=== PATIENT | female | born 1950 | race American Indian/Alaskan Native ===

== ENCOUNTER 2017-06-07 17:47 | Emergency (ER) | payer MEDICARE ==
[2017-06-07 18:17] VITALS: BP 176/79
--- NOTE | 2017-06-07 19:31 | Emergency Department Report ---
ED Extremity Problem HPI - General Chief complaint: Extremity Injury, Lower Stated complaint: LEG/KNEE PAIN Time Seen by Provider: 06/07/17 18:59 Source: patient Mode of arrival: Ambulatory Limitations: No Limitations - History of Present Illness Initial comments: 66-year-old female past medical history osteoarthritis, atrial fibrillation on Coumadin, hypertension, diabetes presents with complaint of acute on chronic left knee pain. Patient denies fevers chills is ambulatory upon examination. Patient is awake alert and oriented 3 states that for approximately one week she has experienced worsening aching of her left knee. Denies any direct trauma no recent falls. States her left knee is slightly swollen compared to her right. Patient states that she occasionally gets joint aches associated with her osteoarthritis. Patient is aware that she has severe osteoarthritis of the left knee. Patient states she has been taking Tylenol at home with minimal relief of her pain. MD Complaint: extremity pain Onset/Timin -: week(s) Location: left History of Same: No -: Yes arthralgia Radiation: proximal Severity scale (0 -10): 6 Quality: aching Consistency: constant Improves with: cold therapy, immobilization, elevation Worsens with: weight bearing - Related Data Home Medications Medication Instructions Recorded Confirmed Last Taken Diltiazem [Cardizem] 30 mg PO BID 04/30/13 04/30/13 04/30/13 10:30 Glimepiride [Amaryl] 2 mg PO QAM 04/30/13 04/30/13 04/30/13 10:30 Lisinopril/Hydrochlorothiazide 1 tab PO QDAY 04/30/13 04/30/13 04/30/13 10:30 [Zestoretic 20-25 mg] Metformin HCl [Fortamet] 1,000 mg PO BID 04/30/13 04/30/13 04/30/13 10:30 Metoprolol [Lopressor] 25 mg PO BID 04/30/13 04/30/13 04/30/13 10:30 Warfarin [Coumadin] 5 mg PO QDAY 04/30/13 04/30/13 04/30/13 19:30 Previous Rx's Medication Instructions Recorded Last Taken Type HYDROcodone/APAP 5-325 [[place] 1 - 2 tab PO Q6HR PRN #20 tablet 05/01/13 Unknown Rx 5/325 mg] Sulfamethoxazole/Trimethoprim 1 each PO BID #20 tablet 05/01/13 Unknown Rx [Bactrim DS] Acetaminophen 500 mg PO Q6H PRN #30 capsule 06/07/17 Unknown Rx HYDROcodone/ACETAMINOPHEN [[place] 1 each PO Q8H PRN #10 tablet 06/07/17 Unknown Rx 5-325 Tablet] Allergies Allergy/AdvReac Type Severity Reaction Status Date / Time No Known Allergies Allergy Unverified 03/31/16 19:40 ED Review of Systems ROS: Stated complaint: LEG/KNEE PAIN Other details as noted in HPI Constitutional: denies: chills, fever Eyes: denies: eye pain, eye discharge, vision change ENT: denies: ear pain, throat pain Respiratory: denies: cough, shortness of breath, wheezing Cardiovascular: denies: chest pain, palpitations Endocrine: no symptoms reported Gastrointestinal: denies: abdominal pain, nausea, diarrhea Genitourinary: denies: urgency, dysuria, discharge Musculoskeletal: joint swelling, arthralgia. denies: back pain Skin: denies: rash, lesions Neurological: denies: headache, weakness, paresthesias Psychiatric: denies: anxiety, depression Hematological/Lymphatic: denies: easy bleeding, easy bruising ED Past Medical Hx - Past Medical History Previous Medical History?: Yes Hx Hypertension: Yes Hx Diabetes: Yes - Surgical History Past Surgical History?: Yes Additional Surgical History: C-Sectionx3. Hernia Repair. Lumpectomy - Social History Smoking Status: Never Smoker Substance Use Type: Prescribed - Medications Home Medications: Home Medications Medication Instructions Recorded Confirmed Last Taken Type Diltiazem [Cardizem] 30 mg PO BID 04/30/13 04/30/13 04/30/13 10:30 History Glimepiride [Amaryl] 2 mg PO QAM 04/30/13 04/30/13 04/30/13 10:30 History Lisinopril/Hydrochlorothiazide 1 tab PO QDAY 04/30/13 04/30/13 04/30/13 10:30 History [Zestoretic 20-25 mg] Metformin HCl [Fortamet] 1,000 mg PO BID 04/30/13 04/30/13 04/30/13 10:30 History Metoprolol [Lopressor] 25 mg PO BID 04/30/13 04/30/13 04/30/13 10:30 History Warfarin [Coumadin] 5 mg PO QDAY 04/30/13 04/30/13 04/30/13 19:30 History HYDROcodone/APAP 5-325 [[place] 1 - 2 tab PO Q6HR PRN #20 tablet 05/01/13 Unknown Rx 5/325 mg] Sulfamethoxazole/Trimethoprim 1 each PO BID #20 tablet 05/01/13 Unknown Rx [Bactrim DS] Acetaminophen 500 mg PO Q6H PRN #30 capsule 06/07/17 Unknown Rx HYDROcodone/ACETAMINOPHEN [[place] 1 each PO Q8H PRN #10 tablet 06/07/17 Unknown Rx 5-325 Tablet] ED Physical Exam - General Limitations: No Limitations General appearance: alert, in no apparent distress - Head Head exam: Present: atraumatic, normocephalic - Eye Eye exam: Present: normal appearance, PERRL, EOMI - ENT ENT exam: Present: mucous membranes moist - Neck Neck exam: Present: normal inspection - Respiratory Respiratory exam: Present: normal lung sounds bilaterally. Absent: respiratory distress - Cardiovascular Cardiovascular Exam: Present: regular rate, normal rhythm. Absent: systolic murmur, diastolic murmur, rubs, gallop - GI/Abdominal GI/Abdominal exam: Present: soft, normal bowel sounds - Extremities Exam Extremities exam: Present: normal inspection - Expanded Lower Extremity Exam Left Hip exam: Present: normal inspection, full ROM Upper Leg exam: Present: normal inspection, full ROM Knee exam: Present: normal inspection, full ROM (knee flexion and extension intact), tenderness, swelling Lower Leg exam: Present: normal inspection, full ROM Ankle exam: Present: normal inspection, full ROM Foot/Toe exam: Present: normal inspection, full ROM Neuro vascular tendon exam: Present: no vascular compromise (distal capillary refill distal dorsalis pedis and posterior tibial pulses intact) Gait: Positive: observed and normal - Back Exam Back exam: Present: normal inspection - Neurological Exam Neurological exam: Present: alert, oriented X3, CN II-XII intact, normal gait - Psychiatric Psychiatric exam: Present: normal affect, normal mood - Skin Skin exam: Present: warm, dry, intact, normal color. Absent: rash ED Course Vital Signs 06/07/17 06/07/17 18:14 19:35 Temperature 98.5 F Pulse Rate 65 Respiratory 18 18 Rate Blood Pressure 176/79 O2 Sat by Pulse 97 Oximetry ED Medical Decision Making - Lab Data Result diagrams: 06/07/17 19:30 06/07/17 19:30 - Medical Decision Making A/P: Osteoarthritis left knee 1-patient has visible severe osteoarthritis left knee, will provide Carlos Manuel wrap to left knee and short course of [place] 2-patient can continue to take extra strength Tylenol when necessary 3-I will provide patient with a referral to orthopedics. Patient is ambulatory upon discharge without assistance 4- labs within normal limits, INR 2.1 within therapeutic range Critical care attestation.: If time is entered above; I have spent that time in minutes in the direct care of this critically ill patient, excluding procedure time. ED Disposition Clinical Impression: Osteoarthritis of left knee Qualifiers: Osteoarthritis type: unspecified Qualified Code(s): M17.12 - Unilateral primary osteoarthritis, left knee Disposition: TO HOME OR SELFCARE Is pt being admited?: No Does the pt Need Aspirin: No Condition: Stable Instructions: Osteoarthritis (ED), Knee Pain (ED), Arthralgia (ED) Prescriptions: Acetaminophen 500 mg PO Q6H PRN #30 capsule PRN Reason: Pain HYDROcodone/ACETAMINOPHEN [[place] 5-325 Tablet] 1 each PO Q8H PRN #10 tablet PRN Reason: Pain Referrals: JAIRON CASTRO MD [Staff Physician] - 3-5 Days Forms: Accompanied Note Time of Disposition: 20:50
[2017-06-07] MEDS: TYLENOL PO ONE (19:35)
[2017-06-07 19:42] LABS: Basophils % (Auto) 0.7 % (0.0-1.8); Hematocrit 36.9 % (30.3-42.9); Hemoglobin 12.4 gm/dl (10.1-14.3); Mean Corpuscular HGB Conc 34 % (30-34); Mean Corpuscular Hemoglobin 31 pg (28-32); Mean Corpuscular Volume 92 fl (79-97); Platelet Count 259 K/mm3 (140-440); Red Blood Count 4.02 M/mm3 (3.65-5.03); Red Cell Distribution Width 13.9 % (13.2-15.2)
[2017-06-07 19:52] LABS: INR 2.15 (0.87-1.13)
[2017-06-07 19:58] LABS: BUN/Creatinine Ratio 13; Blood Urea Nitrogen 12 mg/dL (7-17); Calcium 9.3 mg/dL (8.4-10.2); Carbon Dioxide 28 mmol/L (22-30); Glucose 107 mg/dL (65-100)
[2017-06-07 19:59] LABS: Anion Gap 16 mmol/L; Chloride 98.4 mmol/L (98-107); Potassium 3.4 mmol/L (3.6-5.0); Sodium 139 mmol/L (137-145)
--- NOTE | 2017-06-07 20:46 | XRay Report ---
FINAL REPORT PROCEDURE: XR KNEE 3V LT TECHNIQUE: Three views of the left knee are obtained HISTORY: acute on chronic left knee pain COMPARISON: No prior studies are available for comparison. FINDINGS: Prominent osteoarthritic changes are seen. Prominent medial compartmental narrowing is seen with large medial osteophytes. Small lateral osteophytes are seen. No joint effusion or fracture is seen. IMPRESSION: Prominent osteoarthritic changes are seen.
== END 2017-06-07 21:15 | disposition home or self-care (01) ==
LOC: ED 17:47
DX: M17.12 Unilateral primary osteoarthritis, left knee (principal); I10 Essential (primary) hypertension; E11.9 Type 2 diabetes mellitus without complications; Z88.8 Allergy status to other drugs, medicaments and biological substances
CPT/HCPCS: 36415; 80048; 85025; 85610; 99284

== ENCOUNTER 2017-06-08 10:25 | Outpatient (CLI) | payer MEDICARE ==
--- NOTE | 2017-06-09 07:37 | Vascular Lab Report ---
Left Lower Extremity Venous Duplex Study: Reason for Exam: Swelling of the left lower extremity. Comments on the Right: A limited duplex study was done of the proximal veins of the right lower extremity. All veins visualized are freely compressible without evidence of internal echogenicity. Flow is spontaneous and phasic throughout. No evidence of acute or chronic thrombus is seen in any of the vessels visualized. Comments on the Left: All veins visualized are freely compressible without evidence of internal echogenicity. Flow is spontaneous and phasic throughout. No evidence of acute or chronic thrombus is seen in any of the vessels visualized. Impression: No evidence of acute or chronic deep venous thrombosis in the left lower extremity.
== END 2017-06-08 10:26 | disposition home or self-care (01) ==
LOC: VAS 10:25
PROVIDERS: ATTEND Physician Assistant
DX: M79.89 Other specified soft tissue disorders (principal)

== ENCOUNTER 2017-08-23 09:25 | Emergency (ER) | payer MEDICARE ==
[2017-08-23 10:22] LABS: INR 2.1 (0.87-1.13); Partial Thromboplastin Time 33.3 Sec. (24.2-36.6)
[2017-08-23 10:27] LABS: Alanine Aminotransferase 18 units/L (7-56); Albumin 3.9 g/dL (3.9-5); BUN/Creatinine Ratio 13; Blood Urea Nitrogen 9 mg/dL (7-17); Calcium 8.5 mg/dL (8.4-10.2); Hemolysis Index 7
[2017-08-23] MEDS ORDERED: TYLENOL #3 PO ONE (13:19)
--- NOTE | 2017-08-23 13:25 | Emergency Department Report ---
ED General Adult HPI - General Chief complaint: Vaginal Bleeding Stated complaint: CRAMPS/BLEEDING Time Seen by Provider: 08/23/17 12:58 Source: patient Mode of arrival: Ambulatory Limitations: No Limitations - History of Present Illness Initial comments: This is a 67-year-old female who was previously unknown to this provider. Past medical history includes arthritis, atrial fibrillation on Coumadin, hypertension, diabetes, obesity. Her private information technology program manager is with [facility]. Patient presents to ER with complaint of lower abdominal cramping and atraumatic vaginal bleeding. This is intermittent over the past few days. Denies headache, neck pain, chest pain, shortness of breath, vomiting blood, defecating blood. Patient denies urinary symptoms. She further reports that she was seen for vaginal bleeding at [place] a few years ago, and had a workup that was unremarkable for cancer, malignancy. Her symptoms have been intermittent, they do not radiate anywhere, and they do not have exacerbating or relieving factors. -: Gradual Location: abdomen, pelvis, genitals Radiation: non-radiation Consistency: intermittent Improves with: none Worsens with: none Associated Symptoms: denies: confusion, chest pain, cough, diaphoresis, fever/ chills, headaches, loss of appetite, malaise, nausea/vomiting, rash, seizure, shortness of breath, syncope, weakness - Related Data Home Medications Medication Instructions Recorded Confirmed Last Taken Diltiazem [Cardizem] 30 mg PO BID 04/30/13 04/30/13 04/30/13 10:30 Glimepiride [Amaryl] 2 mg PO QAM 04/30/13 04/30/13 04/30/13 10:30 Lisinopril/Hydrochlorothiazide 1 tab PO QDAY 04/30/13 04/30/13 04/30/13 10:30 [Zestoretic 20-25 mg] Metformin HCl [Fortamet] 1,000 mg PO BID 04/30/13 04/30/13 04/30/13 10:30 Metoprolol [Lopressor] 25 mg PO BID 04/30/13 04/30/13 04/30/13 10:30 Warfarin [Coumadin] 5 mg PO QDAY 04/30/13 04/30/13 04/30/13 19:30 Previous Rx's Medication Instructions Recorded Last Taken Type HYDROcodone/APAP 5-325 [[place] 1 - 2 tab PO Q6HR PRN #20 tablet 05/01/13 Unknown Rx 5/325 mg] Sulfamethoxazole/Trimethoprim 1 each PO BID #20 tablet 05/01/13 Unknown Rx [Bactrim DS] Acetaminophen 500 mg PO Q6H PRN #30 capsule 06/07/17 Unknown Rx HYDROcodone/ACETAMINOPHEN [[place] 1 each PO Q8H PRN #10 tablet 06/07/17 Unknown Rx 5-325 Tablet] Acetaminophen [Tylenol Arthritis] 650 mg PO Q6HR PRN #30 tablet.er 08/23/17 Unknown Rx Allergies Allergy/AdvReac Type Severity Reaction Status Date / Time KIDNEY DYE Allergy Swelling Uncoded 06/08/17 10:27 ED Review of Systems ROS: Stated complaint: CRAMPS/BLEEDING Other details as noted in HPI Constitutional: denies: fever Eyes: denies: eye discharge ENT: denies: epistaxis Respiratory: denies: cough Cardiovascular: denies: chest pain Gastrointestinal: denies: hematemesis, melena, hematochezia Genitourinary: abnormal menses Musculoskeletal: denies: back pain Skin: denies: lesions Neurological: denies: weakness ED Past Medical Hx - Past Medical History Previous Medical History?: Yes Hx Hypertension: Yes Hx Diabetes: Yes Additional medical history: post menopausal bleeding, Uterine fibroids, Hx of A- fib - Surgical History Past Surgical History?: Yes Additional Surgical History: C-Sectionx3. Hernia Repair. Lumpectomy - Social History Smoking Status: Never Smoker Substance Use Type: Prescribed - Medications Home Medications: Home Medications Medication Instructions Recorded Confirmed Last Taken Type Diltiazem [Cardizem] 30 mg PO BID 04/30/13 04/30/13 04/30/13 10:30 History Glimepiride [Amaryl] 2 mg PO QAM 04/30/13 04/30/13 04/30/13 10:30 History Lisinopril/Hydrochlorothiazide 1 tab PO QDAY 04/30/13 04/30/13 04/30/13 10:30 History [Zestoretic 20-25 mg] Metformin HCl [Fortamet] 1,000 mg PO BID 04/30/13 04/30/13 04/30/13 10:30 History Metoprolol [Lopressor] 25 mg PO BID 09/03/0504/30/13 04/30/13 10:30 History Warfarin [Coumadin] 5 mg PO QDAY 04/30/13 04/30/13 04/30/13 19:30 History HYDROcodone/APAP 5-325 [[place] 1 - 2 tab PO Q6HR PRN #20 tablet 05/01/13 Unknown Rx 5/325 mg] Sulfamethoxazole/Trimethoprim 1 each PO BID #20 tablet 05/01/13 Unknown Rx [Bactrim DS] Acetaminophen 500 mg PO Q6H PRN #30 capsule 06/07/17 Unknown Rx HYDROcodone/ACETAMINOPHEN [[place] 1 each PO Q8H PRN #10 tablet 06/07/17 Unknown Rx 5-325 Tablet] Acetaminophen [Tylenol Arthritis] 650 mg PO Q6HR PRN #30 tablet.er 08/23/17 Unknown Rx ED Physical Exam - General Limitations: No Limitations General appearance: alert, in no apparent distress - Head Head exam: Present: atraumatic, normocephalic - Eye Eye exam: Present: normal appearance, EOMI. Absent: nystagmus - ENT ENT exam: Present: normal exam, normal orophraynx, mucous membranes moist, normal external ear exam - Neck Neck exam: Present: normal inspection, full ROM - Respiratory Respiratory exam: Present: normal lung sounds bilaterally. Absent: respiratory distress, chest wall tenderness - Cardiovascular Cardiovascular Exam: Present: regular rate, normal rhythm, normal heart sounds. Absent: systolic murmur, diastolic murmur, rubs, gallop - GI/Abdominal GI/Abdominal exam: Present: soft, normal bowel sounds. Absent: distended, tenderness, guarding, rebound, rigid, pulsatile mass - External exam: Present: normal external exam Speculum exam: Present: vaginal bleeding, other (escorted by trupti Peralta) - Extremities Exam Extremities exam: Present: normal inspection, full ROM, normal capillary refill , pedal edema. Absent: calf tenderness - Back Exam Back exam: Present: normal inspection, full ROM. Absent: tenderness, CVA tenderness (R), paraspinal tenderness, vertebral tenderness - Neurological Exam Neurological exam: Present: alert, oriented X3, CN II-XII intact, normal gait, other (Extraocular movements intact. Tongue midline. No facial droop. Facial sensation intact to light touch in the V1, V2, V3 distribution bilaterally. 5 and 5 strength in 4 extremities.. Sensation is intact to light touch in 4 extremities.). Absent: motor sensory deficit - Psychiatric Psychiatric exam: Present: normal affect, normal mood - Skin Skin exam: Present: warm, dry, intact, normal color. Absent: rash ED Course Vital Signs 08/23/17 08/23/17 08/23/17 09:41 13:32 13:39 Temperature 98.6 F Pulse Rate 65 Respiratory 20 16 Rate Blood Pressure 207/91 O2 Sat by Pulse 99 100 98 Oximetry 08/23/17 08/23/17 08/23/17 14:00 14:01 14:30 Temperature Pulse Rate 61 65 Respiratory 21 16 22 Rate Blood Pressure 187/59 184/58 O2 Sat by Pulse 97 95 Oximetry - Reevaluation(s) Reevaluation #1: 08/23/17 14:57 Blood pressure improved. Belly soft. CT scan negative for retroperitoneal hematoma. Patient feels improved. She will be discharged. ED Medical Decision Making - Lab Data Result diagrams: 08/23/17 09:50 08/23/17 09:50 Vital Signs 08/23/17 08/23/17 08/23/17 09:41 13:39 14:01 Temperature 98.6 F Pulse Rate 65 Respiratory 20 16 16 Rate Blood Pressure 207/91 O2 Sat by Pulse 99 98 Oximetry Lab Results 08/23/17 08/23/17 08/23/17 Range/Units 09:50 09:50 09:50 WBC 9.8 (4.5-11.0) K/mm3 RBC 4.09 (3.65-5.03) M/mm3 Hgb 12.5 (10.1-14.3) gm/dl Hct 37.7 (30.3-42.9) % MCV 92 (79-97) fl MCH 31 (28-32) pg MCHC 33 (30-34) % RDW 14.1 (13.2-15.2) % Plt Count 299 (140-440) K/mm3 Lymph % (Auto) 26.4 (13.4-35.0) % [place] % (Auto) 6.0 (0.0-7.3) % Eos % (Auto) 2.6 (0.0-4.3) % Baso % (Auto) 0.5 (0.0-1.8) % Lymph # 2.6 (1.2-5.4) K/mm3 [place] # 0.6 (0.0-0.8) K/mm3 Eos # 0.3 (0.0-0.4) K/mm3 Baso # 0.0 (0.0-0.1) K/mm3 Seg Neutrophils % 64.5 (40.0-70.0) % Seg Neutrophils # 6.3 (1.8-7.7) K/mm3 PT 24.8 H (12.2-14.9) Sec. INR 2.10 H (0.87-1.13) APTT 33.3 (24.2-36.6) Sec. Sodium 141 (137-145) mmol/L Potassium 3.6 (3.6-5.0) mmol/L Chloride 100.7 (98-107) mmol/L Carbon Dioxide 25 (22-30) mmol/L Anion Gap 19 mmol/L BUN 9 (7-17) mg/dL Creatinine 0.7 (0.7-1.2) mg/dL Estimated GFR > 60 ml/min BUN/Creatinine Ratio 13 % Glucose 252 H (65-100) mg/dL Calcium 8.5 (8.4-10.2) mg/dL Total Bilirubin 0.50 (0.1-1.2) mg/dL AST 18 (5-40) units/L ALT 18 (7-56) units/L Alkaline Phosphatase 81 (35-129) units/L Total Protein 7.6 (6.3-8.2) g/dL Albumin 3.9 (3.9-5) g/dL Albumin/Globulin Ratio 1.1 % Blood Type Antibody Screen 08/23/17 Range/Units 09:50 WBC (4.5-11.0) K/mm3 RBC (3.65-5.03) M/mm3 Hgb (10.1-14.3) gm/dl Hct (30.3-42.9) % MCV (79-97) fl MCH (28-32) pg MCHC (30-34) % RDW (13.2-15.2) % Plt Count (140-440) K/mm3 Lymph % (Auto) (13.4-35.0) % [place] % (Auto) (0.0-7.3) % Eos % (Auto) (0.0-4.3) % Baso % (Auto) (0.0-1.8) % Lymph # (1.2-5.4) K/mm3 [place] # (0.0-0.8) K/mm3 Eos # (0.0-0.4) K/mm3 Baso # (0.0-0.1) K/mm3 Seg Neutrophils % (40.0-70.0) % Seg Neutrophils # (1.8-7.7) K/mm3 PT (12.2-14.9) Sec. INR (0.87-1.13) APTT (24.2-36.6) Sec. Sodium (137-145) mmol/L Potassium (3.6-5.0) mmol/L Chloride (98-107) mmol/L Carbon Dioxide (22-30) mmol/L Anion Gap mmol/L BUN (7-17) mg/dL Creatinine (0.7-1.2) mg/dL Estimated GFR ml/min BUN/Creatinine Ratio % Glucose (65-100) mg/dL Calcium (8.4-10.2) mg/dL Total Bilirubin (0.1-1.2) mg/dL AST (5-40) units/L ALT (7-56) units/L Alkaline Phosphatase (35-129) units/L Total Protein (6.3-8.2) g/dL Albumin (3.9-5) g/dL Albumin/Globulin Ratio % Blood Type O POSITIVE Antibody Screen Negative - Radiology Data Radiology results: report reviewed, image reviewed Referring Physician: MARIA ALEJANDRA JUDGE Patient Name: PAMELA KLINE Date of : 1950 Sex: Female Report Date: 2017-08-23 Report Status: Finalized Findings [facility] [address] [place] [address] Cat Scan Report Signed Patient: PAMELA KLINE MR#: [id number] : 1950 Acct:[id number] Age/Sex: 67 / F ADM Date: 08/23/17 Loc: ED Attending Dr: Ordering Physician: MARIA ALEJANDRA JUDGE MD Date of Service: 08/23/17 Procedure(s): CT abdomen pelvis wo con Accession Number(s): [id number] cc: MARIA ALEJANDRA JUDGE MD FINAL REPORT PROCEDURE: CT ABDOMEN PELVIS WO CON TECHNIQUE: Computerized axial tomography of the abdomen and pelvis was performed without intravenous contrast. This study is performed without intravascular contrast material and its sensitivity for abdominal and pelvic pathology, including neoplasms, inflammation, abscess, free fluid, thrombosis, arterial dissection and infarction, is reduced compared with a contrast enhanced study. HISTORY: abd pain COMPARISON: No prior studies are available for comparison. FINDINGS: Lower Lung fitzgerald: Linear band of atelectasis seen in the left lung base. Lung bases otherwise are clear. Upper Abdomen: The liver is mildly enlarged. There is extensive diffuse decreased density throughout the liver consistent with fatty infiltration. Small calcified granuloma seen in the right lobe of the liver. No discrete liver lesions are identified. Intrahepatic ducts are not distended. 1 centimeter calcified gallstone appears to be present in the neck of the gallbladder. Gallbladder is otherwise unremarkable. The adrenal glands, the pancreas and the spleen are unremarkable. Kidneys, Ureters and Urinary bladder: Kidneys and ureters are unremarkable. Urinary bladder is nearly empty and shows no gross abnormality. Retroperitoneum: Atherosclerotic changes are seen in the abdominal aorta. No aneurysm is visualized. Nonspecific subcentimeter lymph nodes are seen in the retroperitoneum. No pathologically enlarged lymph nodes are identified. Bowel: No focal abnormalities are identified. No evidence of bowel obstruction ascites or free intraperitoneal gas. Normal-appearing appendix is seen in the right lower quadrant. Reproductive organs: Partially calcified nodular density is seen in the fundus of the uterus. Calcified and noncalcified fibroids appear to be present. On the sagittal view the endometrial stripe appears prominent. I cannot exclude thickening. No abnormal adnexal masses are seen. Other: Degenerative changes are seen in the lumbar spine. No acute bony abnormalities are identified. IMPRESSION: Cholelithiasis. Moderate-sized gallstone appears to be present in the neck of the gallbladder. If clinically indicated gallbladder ultrasound could be obtained for further evaluation. Uterus appears to be enlarged secondary to uterine fibroids 1 of which appears to be partially calcified. On the sagittal view the endometrial stripe appears prominent. I cannot exclude thickening. Recommend pelvic ultrasound for further evaluation. Mild hepatomegaly and evidence of fatty infiltration of the liver.. Transcribed By: BRITTANIE Dictated By: MASTER LINDSAY MD Electronically Authenticated By: MASTER LINDSAY MD Signed Date/Time: 08/23/17 1025 DD/ 1025 - Medical Decision Making Differential diagnosis, including but not limited to: Uterine fibroids, uterine malignancy, gynecologic malignancy, supratherapeutic INR, retroperitoneal hematoma Assessment and plan: 67-year-old female who reports a history of A. fib and is on Coumadin, clinically in sinus now, INR appropriate at 2.1, with mild vaginal bleeding, likely secondary to INR and fibroids. Patient is afebrile with reassuring vital signs with the exception of hypertension. Her abdomen is soft and benign, and a noncontrast CT scan of the abdomen and pelvis was negative for retroperitoneal hematoma. Incidental gynecologic findings were noted, patient reports having had a workup recently, but I would still refer her to outpatient gynecology to follow this up. Given that she is in normal sinus and has some mild symptomatically vaginal bleeding, I will recommend that the patient withhold her Coumadin, and follow up with her information technology program manager or a local information technology program manager within the next 10 days for recheck. Elevated blood pressure is appreciated, however this is asymptomatic, the patient is quite anxious, and this can also be followed up by an outpatient primary care doctor. There does not appear to be an emergent condition at this time, Critical care attestation.: If time is entered above; I have spent that time in minutes in the direct care of this critically ill patient, excluding procedure time. ED Disposition Clinical Impression: Vaginal bleeding, Elevated INR Disposition: DC-01 TO HOME OR SELFCARE Is pt being admited?: No Does the pt Need Aspirin: No Condition: Stable Instructions: Bleeding (ED) Additional Instructions: Continue current outpatient medications, with the exception of Coumadin therapy. Discontinue Coumadin therapy. Follow-up with either your primary care doctor or information technology program manager within the next 7-10 days to discuss reinitiating. Blood pressure was elevated. Follow up with either your primary care doctor or information technology program manager within the recommended timeframe to have her blood pressure evaluated. Please note that complications of elevated blood pressure includes stroke, heart attack, disability, , paralysis, loss of quality of life. Therefore, it is very important to follow-up for your blood pressure. Follow-up with any of of the listed cardiology groups as recommended. I recommend that you follow-up with a combination window installer for the postmenopausal vaginal bleeding within the next month. Not following up as recommended may resultant undiagnosed tumor, cancer, malignancy. Therefore, it is very important to follow-up in the recommended timeframe. Return to the ER right away with new pain, worsening pain, migration of pain, fevers, chills, lethargy, irritability, projectile vomiting, change in mental status, severe increasing bleeding, lightheadedness, loss of consciousness. Prescriptions: Acetaminophen [Tylenol Arthritis] 650 mg PO Q6HR PRN #30 tablet.er PRN Reason: Pain Referrals: PRIMARY CARE, [Primary Care Provider] - 3-5 Days [facility] [Provider Group] - 3-5 Days [facility] [Provider Group] - 3-5 Days [facility] [Provider Group] - 3-5 Days [facility] [Provider Group] - 3-5 Days [facility] [Provider Group] - 3-5 Days
[2017-08-23 13:38] LABS: Basophils % (Auto) 0.5 % (0.0-1.8); Eosinophils # (Auto) 0.3 K/mm3 (0.0-0.4); Eosinophils % (Auto) 2.6 % (0.0-4.3); Hematocrit 37.7 % (30.3-42.9); Hemoglobin 12.5 gm/dl (10.1-14.3); Lymphocytes # (Auto) 2.6 K/mm3 (1.2-5.4); Lymphocytes % (Auto) 26.4 % (13.4-35.0); Mean Corpuscular HGB Conc 33 % (30-34); Mean Corpuscular Hemoglobin 31 pg (28-32); Mean Corpuscular Volume 92 fl (79-97); Monocytes # (Auto) 0.6 K/mm3 (0.0-0.8); Platelet Count 299 K/mm3 (140-440); Red Blood Count 4.09 M/mm3 (3.65-5.03); Red Cell Distribution Width 14.1 % (13.2-15.2)
--- NOTE | 2017-08-23 14:28 | Cat Scan Report ---
FINAL REPORT PROCEDURE: CT ABDOMEN PELVIS WO CON TECHNIQUE: Computerized axial tomography of the abdomen and pelvis was performed without intravenous contrast. This study is performed without intravascular contrast material and its sensitivity for abdominal and pelvic pathology, including neoplasms, inflammation, abscess, free fluid, thrombosis, arterial dissection and infarction, is reduced compared with a contrast enhanced study. HISTORY: abd pain COMPARISON: No prior studies are available for comparison. FINDINGS: Lower Lung fitzgerald: Linear band of atelectasis seen in the left lung base. Lung bases otherwise are clear. Upper Abdomen: The liver is mildly enlarged. There is extensive diffuse decreased density throughout the liver consistent with fatty infiltration. Small calcified granuloma seen in the right lobe of the liver. No discrete liver lesions are identified. Intrahepatic ducts are not distended. 1 centimeter calcified gallstone appears to be present in the neck of the gallbladder. Gallbladder is otherwise unremarkable. The adrenal glands, the pancreas and the spleen are unremarkable. Kidneys, Ureters and Urinary bladder: Kidneys and ureters are unremarkable. Urinary bladder is nearly empty and shows no gross abnormality. Retroperitoneum: Atherosclerotic changes are seen in the abdominal aorta. No aneurysm is visualized. Nonspecific subcentimeter lymph nodes are seen in the retroperitoneum. No pathologically enlarged lymph nodes are identified. Bowel: No focal abnormalities are identified. No evidence of bowel obstruction ascites or free intraperitoneal gas. Normal-appearing appendix is seen in the right lower quadrant. Reproductive organs: Partially calcified nodular density is seen in the fundus of the uterus. Calcified and noncalcified fibroids appear to be present. On the sagittal view the endometrial stripe appears prominent. I cannot exclude thickening. No abnormal adnexal masses are seen. Other: Degenerative changes are seen in the lumbar spine. No acute bony abnormalities are identified. IMPRESSION: Cholelithiasis. Moderate-sized gallstone appears to be present in the neck of the gallbladder. If clinically indicated gallbladder ultrasound could be obtained for further evaluation. Uterus appears to be enlarged secondary to uterine fibroids 1 of which appears to be partially calcified. On the sagittal view the endometrial stripe appears prominent. I cannot exclude thickening. Recommend pelvic ultrasound for further evaluation. Mild hepatomegaly and evidence of fatty infiltration of the liver..
[2017-08-23 16:41] VITALS: BP 207/87
== END 2017-08-23 16:44 | disposition home or self-care (01) ==
LOC: ED 09:25
DX: N93.9 Abnormal uterine and vaginal bleeding, unspecified (principal); R79.1 Abnormal coagulation profile; I10 Essential (primary) hypertension; E11.9 Type 2 diabetes mellitus without complications; Z98.890 Other specified postprocedural states; Z88.8 Allergy status to other drugs, medicaments and biological substances
CPT/HCPCS: 36415; 74176; 80053; 85025; 85610; 85730; 86850; 86900; 86901

== ENCOUNTER 2017-10-10 13:12 | Emergency (ER) | payer MEDICARE ==
[2017-10-10 13:28] VITALS: BP 141/74
--- NOTE | 2017-10-10 14:40 | Emergency Department Report ---
Abscess Boil HPI - HPI Chief Complaint: Skin Rash Stated Complaint: VAGINAL RASH Time Seen by Provider: 10/10/17 13:53 Duration: 4 Days Location: Other (patient has a small draining abscess in the groin anterior midline. Patient states she 4 days he go use the Phenergan spray and had broke out in a rash consistent rashes develop she's been itching and scratching and now has a small draining abscess) Severity: Moderate History: Yes Pain, Yes Purulent Drainage, No Fever, No Numbness, No Foreign Body , No Previous History, No Insect Bite Home Medications: Home Medications Medication Instructions Recorded Confirmed Last Taken Diltiazem [Cardizem] 30 mg PO BID 04/30/13 04/30/13 04/30/13 10:30 Glimepiride [Amaryl] 2 mg PO QAM 04/30/13 04/30/13 04/30/13 10:30 Lisinopril/Hydrochlorothiazide 1 tab PO QDAY 04/30/13 04/30/13 04/30/13 10:30 [Zestoretic 20-25 mg] Metformin HCl [Fortamet] 1,000 mg PO BID 04/30/13 04/30/13 04/30/13 10:30 Metoprolol [Lopressor] 25 mg PO BID 04/30/13 04/30/13 04/30/13 10:30 Warfarin [Coumadin] 5 mg PO QDAY 04/30/13 04/30/13 04/30/13 19:30 Previous Rx's Medication Instructions Recorded Last Taken Type HYDROcodone/APAP 5-325 [[place] 1 - 2 tab PO Q6HR PRN #20 tablet 05/01/13 Unknown Rx 5/325 mg] Sulfamethoxazole/Trimethoprim 1 each PO BID #20 tablet 05/01/13 Unknown Rx [Bactrim DS] Acetaminophen 500 mg PO Q6H PRN #30 capsule 06/07/17 Unknown Rx HYDROcodone/ACETAMINOPHEN [[place] 1 each PO Q8H PRN #10 tablet 06/07/17 Unknown Rx 5-325 Tablet] Acetaminophen [Tylenol Arthritis] 650 mg PO Q6HR PRN #30 tablet.er 08/23/17 Unknown Rx Doxycycline [Vibramycin CAP] 100 mg PO Q12HR #14 capsule 10/10/17 Unknown Rx HYDROcodone/APAP 5-325 [[place] 1 each PO Q6HR PRN #12 tablet 10/10/17 Unknown Rx 5/325] Triamcinolone 0.1% [Kenalog 0.1% 1 applic TP TID #1 tube 10/10/17 Unknown Rx CREAM] Allergies/Adverse Reactions: Allergies Allergy/AdvReac Type Severity Reaction Status Date / Time KIDNEY DYE Allergy Swelling Uncoded 06/08/17 10:27 ED Review of Systems ROS: Stated complaint: VAGINAL RASH Other details as noted in HPI Comment: All other systems reviewed and negative ED Past Medical Hx - Past Medical History Hx Hypertension: Yes Hx Diabetes: Yes Additional medical history: post menopausal bleeding, Uterine fibroids, Hx of A- fib - Surgical History Additional Surgical History: C-Sectionx3. Hernia Repair. Lumpectomy - Social History Smoking Status: Never Smoker Substance Use Type: None - Medications Home Medications: Home Medications Medication Instructions Recorded Confirmed Last Taken Type Diltiazem [Cardizem] 30 mg PO BID 04/30/13 04/30/13 04/30/13 10:30 History Glimepiride [Amaryl] 2 mg PO QAM 04/30/13 04/30/13 04/30/13 10:30 History Lisinopril/Hydrochlorothiazide 1 tab PO QDAY 04/30/13 04/30/13 04/30/13 10:30 History [Zestoretic 20-25 mg] Metformin HCl [Fortamet] 1,000 mg PO BID 04/30/13 04/30/13 04/30/13 10:30 History Metoprolol [Lopressor] 25 mg PO BID 04/30/13 04/30/13 04/30/13 10:30 History Warfarin [Coumadin] 5 mg PO QDAY 04/30/13 04/30/13 04/30/13 19:30 History HYDROcodone/APAP 5-325 [[place] 1 - 2 tab PO Q6HR PRN #20 tablet 05/01/13 Unknown Rx 5/325 mg] Sulfamethoxazole/Trimethoprim 1 each PO BID #20 tablet 05/01/13 Unknown Rx [Bactrim DS] Acetaminophen 500 mg PO Q6H PRN #30 capsule 06/07/17 Unknown Rx HYDROcodone/ACETAMINOPHEN [[place] 1 each PO Q8H PRN #10 tablet 06/07/17 Unknown Rx 5-325 Tablet] Acetaminophen [Tylenol Arthritis] 650 mg PO Q6HR PRN #30 tablet.er 08/23/17 Unknown Rx Doxycycline [Vibramycin CAP] 100 mg PO Q12HR #14 capsule 10/10/17 Unknown Rx HYDROcodone/APAP 5-325 [[place] 1 each PO Q6HR PRN #12 tablet 10/10/17 Unknown Rx 5/325] Triamcinolone 0.1% [Kenalog 0.1% 1 applic TP TID #1 tube 10/10/17 Unknown Rx CREAM] ED Abscess Boil Physical Exam - Exam General: Vital signs noted. No distress. Alert and acting appropriately. Size: 1 cm Exam: Yes Tenderness, Yes Surrounding Cellulites/Erythema, Yes Normal Neurologic Exam, Yes Normal Circulation, No Fluctuance, No Lymphangitis, No Crepitation, No Heart Murmur I & D Note - I & D Note I & D Note: ID is not needed the area is small and currently draining ED Course Vital Signs 10/10/17 13:24 Temperature 97.8 F Pulse Rate 103 H Respiratory 18 Rate Blood Pressure 141/74 O2 Sat by Pulse 98 Oximetry Critical care attestation.: If time is entered above; I have spent that time in minutes in the direct care of this critically ill patient, excluding procedure time. ED Medical Decision Making - Medical Decision Making Patient be started on doxycycline and pain meds be discharged home ED Disposition Clinical Impression: Acute folliculitis, Abscess, Dermatitis Disposition: DC-01 TO HOME OR SELFCARE Is pt being admited?: No Does the pt Need Aspirin: No Condition: Stable Instructions: Abscess (ED) Prescriptions: Doxycycline [Vibramycin CAP] 100 mg PO Q12HR #14 capsule HYDROcodone/APAP 5-325 [[place] 5/325] 1 each PO Q6HR PRN #12 tablet PRN Reason: Pain Triamcinolone 0.1% [Kenalog 0.1% CREAM] 1 applic TP TID #1 tube
== END 2017-10-10 15:00 | disposition home or self-care (01) ==
LOC: ED 13:12
DX: N76.0 Acute vaginitis (principal); L73.8 Other specified follicular disorders; L30.9 Dermatitis, unspecified; I10 Essential (primary) hypertension; E11.9 Type 2 diabetes mellitus without complications; Z88.8 Allergy status to other drugs, medicaments and biological substances
CPT/HCPCS: 99282

== ENCOUNTER 2020-07-09 20:02 | Emergency (ER) | payer MEDICARE ==
[2020-07-09 21:23] VITALS: BP 175/64
--- NOTE | 2020-07-09 22:32 | Emergency Department Report ---
- General Chief complaint: Skin/Abscess/Foreign Body Stated complaint: FOREIGN BODY RIGHT EAR Time Seen by Provider: 07/09/20 22:16 Source: patient Mode of arrival: Ambulatory Limitations: No Limitations - History of Present Illness Initial comments: The patient was evaluated in the emergency department for symptoms described in the history of present illness. He/she was evaluated in the context of the global COVID-19 pandemic, which necessitated consideration that the patient might be at risk for infection with the virus that causes COVID-19. Institutional protocols and algorithms that pertain to the evaluation of patients at risk for COVID-19 are in a state of rapid change based on information released by regulatory bodies including the CDC and federal and state organizations. These policies and algorithms were followed during the patient's care in the emergency department. Please note that these policies, procedures and recommendations changed on a rapid basis. 70-year-old -[place] female presents to the emergency room states that her right ear was itching she put her pinky finger into her ear to scratch in her nail broke off into the canal. Patient states she just has slight discomfort. She denies any drainage coming from the ear denies any hearing loss. MD complaint: foreign body (Right ear canal) -: This evening Time: 19:45 Severity scale (0 -10): 1 Worsens with: none Context: none Associated symptoms: denies other symptoms Treatments Prior to Arrival: none - Related Data Home Medications Medication Instructions Recorded Confirmed Last Taken Glimepiride [Amaryl] 2 mg PO QAM 04/30/13 04/30/13 04/30/13 10:30 Lisinopril/Hydrochlorothiazide 1 tab PO QDAY 04/30/13 04/30/13 04/30/13 10:30 [Zestoretic 20-25 mg] Metformin HCl [Fortamet] 1,000 mg PO BID 04/30/13 04/30/13 04/30/13 10:30 Metoprolol [Lopressor] 25 mg PO BID 04/30/13 04/30/13 04/30/13 10:30 Warfarin [Coumadin] 5 mg PO QDAY 04/30/13 04/30/13 04/30/13 19:30 dilTIAZem [Cardizem] 30 mg PO BID 04/30/13 04/30/13 04/30/13 10:30 Previous Rx's Medication Instructions Recorded Last Taken Type HYDROcodone/APAP 5-325 [Edwards 1 - 2 tab PO Q6HR PRN #20 tablet 05/01/13 Unknown Rx 5/325 mg] Sulfamethoxazole/Trimethoprim 1 each PO BID #20 tablet 05/01/13 Unknown Rx [Bactrim DS] Acetaminophen 500 mg PO Q6H PRN #30 capsule 06/07/17 Unknown Rx HYDROcodone/ACETAMINOPHEN [Edwards 1 each PO Q8H PRN #10 tablet 06/07/17 Unknown Rx 5-325 Tablet] Acetaminophen [Tylenol Arthritis] 650 mg PO Q6HR PRN #30 tablet.er 08/23/17 Unknown Rx DOXYCYCLINE Hyclate [Vibramycin 100 mg PO Q12HR #14 capsule 10/10/17 Unknown Rx CAP] HYDROcodone/APAP 5-325 [Edwards 1 each PO Q6HR PRN #12 tablet 10/10/17 Unknown Rx 5/325] Triamcinolone 0.1% [Kenalog 0.1% 1 applic TP TID #1 tube 10/10/17 Unknown Rx CREAM] Acetaminophen with Codeine 1 tab PO Q6HR PRN #6 tablet 04/30/18 Unknown Rx [Tylenol with Codeine #3 Tablet] Cephalexin [Keflex] 500 mg PO BID 10 Days #20 capsule 04/30/18 Unknown Rx Ibuprofen [Ibuprofen 800] 800 mg PO BID PRN #20 tablet 04/30/18 Unknown Rx Sulfamethoxazole/Trimethoprim 1 each PO BID 10 Days #20 tablet 04/30/18 Unknown Rx [Bactrim DS TAB] Amoxicillin [Amoxicillin TAB] 875 mg PO BID #20 tablet 04/30/20 Unknown Rx Chlorhexidine Mouthwash [Peridex] 15 ml MM BID #1 bottle 04/30/20 Unknown Rx Lidocaine Viscous 2% 5 ml MM Q3H PRN #120 udc 04/30/20 Unknown Rx Allergies Allergy/AdvReac Type Severity Reaction Status Date / Time KIDNEY DYE Allergy Swelling Uncoded 06/08/17 10:27 Abscess Boil HPI - HPI Chief Complaint: Skin/Abscess/Foreign Body Stated Complaint: FOREIGN BODY RIGHT EAR Time Seen by Provider: 07/09/20 22:16 Home Medications: Home Medications Medication Instructions Recorded Confirmed Last Taken Glimepiride [Amaryl] 2 mg PO QAM 04/30/13 04/30/13 04/30/13 10:30 Lisinopril/Hydrochlorothiazide 1 tab PO QDAY 04/30/13 04/30/13 04/30/13 10:30 [Zestoretic 20-25 mg] Metformin HCl [Fortamet] 1,000 mg PO BID 04/30/13 04/30/13 04/30/13 10:30 Metoprolol [Lopressor] 25 mg PO BID 04/30/13 04/30/13 04/30/13 10:30 Warfarin [Coumadin] 5 mg PO QDAY 04/30/13 04/30/13 04/30/13 19:30 dilTIAZem [Cardizem] 30 mg PO BID 04/30/13 04/30/13 04/30/13 10:30 Previous Rx's Medication Instructions Recorded Last Taken Type HYDROcodone/APAP 5-325 [Edwards 1 - 2 tab PO Q6HR PRN #20 tablet 05/01/13 Unknown Rx 5/325 mg] Sulfamethoxazole/Trimethoprim 1 each PO BID #20 tablet 05/01/13 Unknown Rx [Bactrim DS] Acetaminophen 500 mg PO Q6H PRN #30 capsule 06/07/17 Unknown Rx HYDROcodone/ACETAMINOPHEN [Edwards 1 each PO Q8H PRN #10 tablet 06/07/17 Unknown Rx 5-325 Tablet] Acetaminophen [Tylenol Arthritis] 650 mg PO Q6HR PRN #30 tablet.er 08/23/17 Unknown Rx DOXYCYCLINE Hyclate [Vibramycin 100 mg PO Q12HR #14 capsule 10/10/17 Unknown Rx CAP] HYDROcodone/APAP 5-325 [Edwards 1 each PO Q6HR PRN #12 tablet 10/10/17 Unknown Rx 5/325] Triamcinolone 0.1% [Kenalog 0.1% 1 applic TP TID #1 tube 10/10/17 Unknown Rx CREAM] Acetaminophen with Codeine 1 tab PO Q6HR PRN #6 tablet 04/30/18 Unknown Rx [Tylenol with Codeine #3 Tablet] Cephalexin [Keflex] 500 mg PO BID 10 Days #20 capsule 04/30/18 Unknown Rx Ibuprofen [Ibuprofen 800] 800 mg PO BID PRN #20 tablet 04/30/18 Unknown Rx Sulfamethoxazole/Trimethoprim 1 each PO BID 10 Days #20 tablet 04/30/18 Unknown Rx [Bactrim DS TAB] Amoxicillin [Amoxicillin TAB] 875 mg PO BID #20 tablet 04/30/20 Unknown Rx Chlorhexidine Mouthwash [Peridex] 15 ml MM BID #1 bottle 04/30/20 Unknown Rx Lidocaine Viscous 2% 5 ml MM Q3H PRN #120 udc 04/30/20 Unknown Rx Allergies/Adverse Reactions: Allergies Allergy/AdvReac Type Severity Reaction Status Date / Time KIDNEY DYE Allergy Swelling Uncoded 06/08/17 10:27 ED Review of Systems ROS: Stated complaint: FOREIGN BODY RIGHT EAR Other details as noted in HPI Comment: All other systems reviewed and negative ED Past Medical Hx - Past Medical History Previous Medical History?: Yes Hx Hypertension: Yes Hx Diabetes: Yes Additional medical history: post menopausal bleeding, Uterine fibroids, Hx of A- fib - Surgical History Additional Surgical History: C-Sectionx3. Hernia Repair. Lumpectomy - Social History Smoking Status: Never Smoker Substance Use Type: None - Medications Home Medications: Home Medications Medication Instructions Recorded Confirmed Last Taken Type Glimepiride [Amaryl] 2 mg PO QAM 04/30/13 04/30/13 04/30/13 10:30 History Lisinopril/Hydrochlorothiazide 1 tab PO QDAY 04/30/13 04/30/13 04/30/13 10:30 History [Zestoretic 20-25 mg] Metformin HCl [Fortamet] 1,000 mg PO BID 04/30/13 04/30/13 04/30/13 10:30 History Metoprolol [Lopressor] 25 mg PO BID 04/30/13 04/30/13 04/30/13 10:30 History Warfarin [Coumadin] 5 mg PO QDAY 04/30/13 04/30/13 04/30/13 19:30 History dilTIAZem [Cardizem] 30 mg PO BID 04/30/13 04/30/13 04/30/13 10:30 History HYDROcodone/APAP 5-325 [Edwards 1 - 2 tab PO Q6HR PRN #20 tablet 05/01/13 Unknown Rx 5/325 mg] Sulfamethoxazole/Trimethoprim 1 each PO BID #20 tablet 05/01/13 Unknown Rx [Bactrim DS] Acetaminophen 500 mg PO Q6H PRN #30 capsule 06/07/17 Unknown Rx HYDROcodone/ACETAMINOPHEN [Edwards 1 each PO Q8H PRN #10 tablet 06/07/17 Unknown Rx 5-325 Tablet] Acetaminophen [Tylenol Arthritis] 650 mg PO Q6HR PRN #30 tablet.er 08/23/17 Unknown Rx DOXYCYCLINE Hyclate [Vibramycin 100 mg PO Q12HR #14 capsule 10/10/17 Unknown Rx CAP] HYDROcodone/APAP 5-325 [Edwards 1 each PO Q6HR PRN #12 tablet 10/10/17 Unknown Rx 5/325] Triamcinolone 0.1% [Kenalog 0.1% 1 applic TP TID #1 tube 10/10/17 Unknown Rx CREAM] Acetaminophen with Codeine 1 tab PO Q6HR PRN #6 tablet 04/30/18 Unknown Rx [Tylenol with Codeine #3 Tablet] Cephalexin [Keflex] 500 mg PO BID 10 Days #20 capsule 04/30/18 Unknown Rx Ibuprofen [Ibuprofen 800] 800 mg PO BID PRN #20 tablet 04/30/18 Unknown Rx Sulfamethoxazole/Trimethoprim 1 each PO BID 10 Days #20 tablet 04/30/18 Unknown Rx [Bactrim DS TAB] Amoxicillin [Amoxicillin TAB] 875 mg PO BID #20 tablet 04/30/20 Unknown Rx Chlorhexidine Mouthwash [Peridex] 15 ml MM BID #1 bottle 04/30/20 Unknown Rx Lidocaine Viscous 2% 5 ml MM Q3H PRN #120 udc 04/30/20 Unknown Rx ED Physical Exam - General Limitations: No Limitations General appearance: alert, in no apparent distress - Head Head exam: Present: atraumatic, normocephalic - Eye Eye exam: Present: normal appearance - ENT ENT exam: Present: mucous membranes moist - Expanded ENT Exam Expanded TM/Canal exam: Foreign Body: Right TM (Fingernail) - Respiratory Respiratory exam: Absent: accessory muscle use - Extremities Exam Extremities exam: Present: normal inspection, full ROM - Neurological Exam Neurological exam: Present: alert, normal gait - Psychiatric Psychiatric exam: Present: normal affect, normal mood - Skin Skin exam: Present: warm, dry, intact, normal color. Absent: rash ED Course Vital Signs 07/09/20 21:21 Temperature 98 F Pulse Rate 88 Respiratory 20 Rate Blood Pressure 175/64 [Right] O2 Sat by Pulse 100 Oximetry - Foreign Body Removal Ear Location: ear canal (R) Foreign Body Suspected: other (Fingernail) Foreign Body Removed: yes Foreign Body Removal Technique: instrumentation Tympanic Membrane Intact: Yes Patient Tolerated Procedure: well Complications: none ED Medical Decision Making - Medical Decision Making 70-year-old -[place] female presents to the emergency room states that her right ear was itching she put her pinky finger into her ear to scratch in her nail broke off into the canal. Patient states she just has slight discomfort. She denies any drainage coming from the ear denies any hearing loss. Fingernail removed from right ear canal with alligator hemostats. Tympanic membrane is normal. Critical care attestation.: If time is entered above; I have spent that time in minutes in the direct care of this critically ill patient, excluding procedure time. ED Disposition Clinical Impression: Foreign body in right ear, initial encounter Disposition: TO HOME OR SELFCARE Is pt being admited?: No Does the pt Need Aspirin: No Condition: Stable Instructions: Ear Foreign Body, [id number] Additional Instructions: Please avoid placing things in your ear. Follow-up with your primary care provider if you have any further concerns.
== END 2020-07-09 22:30 | disposition home or self-care (01) ==
LOC: ED 20:02
DX: T16.1XXA Foreign body in right ear, initial encounter (principal); I10 Essential (primary) hypertension; E11.9 Type 2 diabetes mellitus without complications; Z98.890 Other specified postprocedural states; Z90.89 Acquired absence of other organs; Z88.8 Allergy status to other drugs, medicaments and biological substances; X58.XXXA Exposure to other specified factors, initial encounter; Y93.89 Activity, other specified; Y92.89 Other specified places as the place of occurrence of the external cause; Y99.8 Other external cause status
CPT/HCPCS: 99282